=== PATIENT | female | born 1960 | race Caucasian/White ===

== ENCOUNTER 2016-07-26 17:17 | Emergency (ER) | payer OTHER ==
[2016-07-26 17:24] VITALS: TEMP 98.4
[2016-07-26] MEDS ORDERED: NS 250 ML IV ONE (17:27)
[2016-07-26] MEDS ORDERED: ASPIRIN 81 MG CHEWABLE TAB PO ONE (17:27)
--- NOTE | 2016-07-26 17:32 | CPEKG ---
Heart Rate: 77 RR Interval: 779 P-R Interval: 184 QRSD Interval: 84 QT Interval: 388 QTC Interval: 440 P [place]: 33 QRS [place]: 14 T Wave [place]: 32 EKG Severity - NORMAL ECG - EKG Impression: SINUS RHYTHM Electronically Signed By: Alessandro Duffy 26-Jul-2016 21:35:41
[2016-07-26 17:46] LABS: % IMMATURE GRANULYOCYTES 0.4 % (0.0-1.1); ABSOLUTE IMMATURE GRANULOCYTES 0.04 10^3/uL (0.00-0.10); ADD DIFF? NO; ADD MORPH? NO; ADD SCAN? NO; ATYPICAL LYMPHOCYTE FLAG 10 (0-99); FRAGMENT RBC FLAG 0 (0-99); HEMOGLOBIN 12.3 g/dL (12.6-16.3); LEFT SHIFT FLG 0 (0-99); LIPEMIA HEMOLYSIS FLAG 80 (0-99); MEAN CELL HEMOGLOBIN 28.4 pg (27.9-34.1); MEAN CELL HEMOGLOBIN CONCENTR. 31.5 g/dL (32.4-36.7); MEAN CELL VOLUME 90.1 fL (81.5-99.8); MEAN PLATELET VOLUME 9.2 fL (8.7-11.7); PLATELET CLUMPS FLAG 10 (0-99); PLATELET COUNT 400 10^3/uL (150-400); RED BLOOD CELL COUNT 4.33 10^6/uL (4.18-5.33); RED CELL DISTRIBUTION WIDTH 15.8 % (11.5-15.2)
[2016-07-26 17:54] LABS: INR 0.98 (0.83-1.16); PROTIME(PATIENT) 12.9 SEC (12.0-15.0)
[2016-07-26 17:55] LABS: APTT 27.6 SEC (23.0-38.0)
--- NOTE | 2016-07-26 18:00 | EDPHY ---
H & P Time Seen by Provider: 07/26/16 17:27 HPI/ROS: HPI Chest heaviness. Shortness of breath. 56-year-old female by private vehicle. This patient states that she had an upper respiratory infection which she describes as a productive cough onset about 4 weeks ago. She reports that since this time she has felt short of breath. She reports that she was getting better but still felt short of breath. Chief flew from [place] to [place] for her mother's . She reports that her cough was still present but was nonproductive and not as extreme. She reports she was prescribed a Z-Ruddy by her primary care physician on July 09. She took this medication and had no relief. She then presented back to her primary care physician's office at [facility] this evening with complaint of shortness of breath and was sent here for evaluation for possible DVT and PE. ROS: Constitutional: No fever, no chills. No weakness. Eyes: No discharge. No changes in vision. ENT: No sore throat. No nasal congestion or rhinorrhea. Respiratory: As above. Cardiac: As above, no palpitations. Gastrointestinal: No abdominal pain, no vomiting, no diarrhea. Genitourinary: No hematuria. No dysuria or increased frequency with urination. Musculoskeletal: No back pain. No neck pain. No myalgias or arthralgias. Skin: No rashes. Neurological: No headache. No focal weakness or altered sensation. Past medical history: Asthma, fibromyalgia, hypothyroid, history of Graves disease, mitral valve prolapse. Social history: Here by herself. As above. Physical Exam: General Appearance: Alert, no distress. Obese habitus. This patient is responding to questions appropriately and in full sentences. This patient appears well-hydrated and well-nourished. Eyes: Pupils equal and round no pallor or injection. No lid edema, erythema or injection. Respiratory: There are no retractions, lungs are clear to auscultation with good air movement bilaterally. No tachypnea. Cardiovascular: Regular rate and rhythm. No murmur. Gastrointestinal: Abdomen is soft and nontender, no masses, bowel sounds normal. No focal tenderness at McBurney's point. No Whitehead sign. Neurological: Motor sensory function is grossly intact. Cranial nerves are normal. Gait is normal. Skin: Warm and dry, no rashes. Musculoskeletal: Neck is supple and nontender. Extremities are symmetrical. All joints range without pain or impingement. Psychiatric: No agitation. No depression. Database: EKG: EKG time is 5:29 p.m.; EKG shows a narrow complex normal sinus rhythm with a ventricular rate of 77. The TN, QRS, QT intervals are within normal limits. There are no ST-T wave changes indicative of ischemic or injury pattern. No evidence of right heart strain. Interpreted by me. Imaging: Chest x-ray AP per; the cardiac mediastinal silhouette is unremarkable. No evidence of infiltrate or pneumothorax. No acute cardiopulmonary disease process noted. Interpreted by me. Procedures: Emergency department course: IV placed. She was placed on a environmental monitoring technician. EKG performed. She was given 324 mg of chewed aspirin. She was given IV normal saline 250 cc. 6:35 p.m., patient re-evaluated. She is resting comfortably at this time. She denies any chest pain or discomfort. Results of her diagnostic tests were discussed. Her workup has been reassuring. I discussed admission with her for observation and cardiology consultation. She does not want to be admitted at this time. She is a single mother with children at home. She tells me that she has been under a lot of stress with her mother done recently. She states that she feels comfortable going home but is asking for something to help her sleep. I discussed follow-up with [facility] for provocative testing on Friday. She is in agreement with this plan. She states also that she can easily return to the emergency department if she develops chest pain or worsening shortness of breath. She understands for follow-up. Return to emergency department precautions were thoroughly reviewed with her. All of her questions were answered. She was discharged in good condition. Differential Diagnosis: The differential diagnosis on this patient includes but is not limited to reactive airway disease, pulmonary embolism, acute coronary syndrome. This represents a partial list of diagnoses considered. These considerations are based on history, physical exam, past history, reassessment and diagnostic testing. Smoking Status: Never smoked Constitutional: Initial Vital Signs Temperature (C) 36.9 C 07/26/16 17:21 Heart Rate 77 07/26/16 17:21 Respiratory Rate 14 07/26/16 17:21 Blood Pressure 184/103 H 07/26/16 17:21 O2 Sat (%) 94 07/26/16 17:21 O2 Delivery Mode Room Air Allergies/Adverse Reactions: bacitracin [From Triple Antibiotic] Allergy (Verified 07/26/16 17:21) bacitracin zinc [From Triple Antibiotic] Allergy (Verified 07/26/16 17:21) gold Au 198 Allergy (Verified 07/26/16 17:21) methimazole [From Tapazole] Allergy (Verified 07/26/16 17:21) neomycin sulfate [From Triple Antibiotic] Allergy (Verified 07/26/16 17:21) polymyxin B [From Triple Antibiotic] Allergy (Verified 07/26/16 17:21) polymyxin B sulfate [From Triple Antibiotic] Allergy (Verified 07/26/16 17:21) Medical Decision Making - Data Points Laboratory Results: Laboratory Results 07/26/16 17:34 07/26/16 07/26/16 07/26/16 17:34 17:34 17:34 WBC 9.59 10^3/uL H 10^3/uL (3.80-9.50) RBC 4.33 10^6/uL 10^6/uL (4.18-5.33) Hgb 12.3 g/dL L g/dL (12.6-16.3) Hct 39.0 % % (38.0-47.0) MCV 90.1 fL fL (81.5-99.8) MCH 28.4 pg pg (27.9-34.1) MCHC 31.5 g/dL L g/dL (32.4-36.7) RDW 15.8 % H % (11.5-15.2) Plt Count 400 10^3/uL 10^3/uL (150-400) MPV 9.2 fL fL (8.7-11.7) Neut % (Auto) 59.5 % % (39.3-74.2) Lymph % (Auto) 30.8 % % (15.0-45.0) [place] % (Auto) 6.2 % % (4.5-13.0) Eos % (Auto) 2.4 % % (0.6-7.6) Baso % (Auto) 0.7 % % (0.3-1.7) Nucleat RBC Rel Count 0.0 % % (0.0-0.2) Absolute Neuts (auto) 5.71 10^3/uL 10^3/uL (1.70-6.50) Absolute Lymphs (auto) 2.95 10^3/uL 10^3/uL (1.00-3.00) Absolute Monos (auto) 0.59 10^3/uL 10^3/uL (0.30-0.80) Absolute Eos (auto) 0.23 10^3/uL 10^3/uL (0.03-0.40) Absolute Basos (auto) 0.07 10^3/uL 10^3/uL (0.02-0.10) Absolute Nucleated RBC 0.00 10^3/uL 10^3/uL (0-0.01) Immature Gran % 0.4 % % (0.0-1.1) Immature Gran # 0.04 10^3/uL 10^3/uL (0.00-0.10) PT 12.9 SEC SEC (12.0-15.0) INR 0.98 (0.83-1.16) APTT 27.6 SEC SEC (23.0-38.0) D-Dimer 0.47 ug/mLFEU ug/mLFEU (0.00-0.50) Troponin I < 0.012 ng/mL ng/mL (0-0.034) NT-Pro-B Natriuret Pep 112 pg/mL pg/mL (0-125) Medications Given: Discontinued Medications Aspirin (Aspirin) 324 mg PO EDNOW ONE Stop: 07/26/16 17:28 Last Admin: 07/26/16 17:45 Dose: 324 mg Sodium Chloride (Ns) 250 mls @ 0 mls/hr IV ONCE ONE PRN Reason: Wide Open Stop: 07/26/16 17:28 Last Admin: 07/26/16 17:45 Dose: 250 mls Departure - Departure Disposition: Home, Routine, Self-Care Clinical Impression: Dyspnea, Chest discomfort Condition: Good Instructions: Dyspnea (ED) Additional Instructions: Read and follow provided instructions. Follow-up with Dr. Capo Oh or 1 of his colleagues at [facility] on Friday as discussed for stress test. Take medication as prescribed. Ativan 1 mg tablets for anxiety, 1 mg every 6-8 hours as needed for anxiety and to help you sleep. Do not drive on this medication. Return to the emergency department immediately for worsening shortness of breath , any chest pain or other serious concerns. Referrals: Capo Oh MD [Medical Doctor] - As per Instructions
[2016-07-26 18:13] LABS: TROPONIN I < 0.012 ng/mL (0-0.034)
[2016-07-26 18:35] VITALS: BP 175/91; PULSE 69; RESP 16; O2SAT 97
[2016-07-26] MEDS ORDERED: LORAZEPAM 1 MG PREPACK#4 BTL TAKEHOME ONE (18:43)
== END 2016-07-26 18:58 | disposition home or self-care (01) ==
DX: R06.00 Dyspnea, unspecified (principal); R07.89 Other chest pain; J45.909 Unspecified asthma, uncomplicated

== ENCOUNTER → 2017-04-09 | Outpatient (CLI) | payer OTHER | LOC: FIMAGING 12:28 | PROVIDERS: ATTEND Obstetrics & Gynecology | DX: Z12.31 Encounter for screening mammogram for malignant neoplasm of breast (principal) | CPT/HCPCS: G0202 ==

== ENCOUNTER → 2017-10-06 | Outpatient (CLI) | payer MEDICAID, OTHER | LOC: BMCIMAGING 10:25 | PROVIDERS: ATTEND Family Medicine | DX: R05 Cough (principal) ==

== ENCOUNTER → 2018-01-16 | Outpatient (CLI) | payer MEDICAID | LOC: FIMAGING 08:58 | PROVIDERS: ATTEND Obstetrics & Gynecology | DX: N64.4 Mastodynia (principal) ==

== ENCOUNTER → 2018-02-11 | Outpatient (CLI) | payer MEDICAID | LOC: FIMAGING 12:45 | PROVIDERS: ATTEND Obstetrics & Gynecology | DX: R10.2 Pelvic and perineal pain (principal); D25.9 Leiomyoma of uterus, unspecified ==

== ENCOUNTER 2018-02-12 16:16 | Emergency (ER) | payer MEDICAID ==
--- NOTE | 2018-02-12 17:22 | EDPHY ---
H & P Stated Complaint: R SIDED ABD PAIN Time Seen by Provider: 02/12/18 16:58 HPI/ROS: HPI: This is a 57-year-old female who presents with Chief Complaint: Right lower quadrant pain Location: Right lower quadrant Quality: Pain Duration: 3 days Signs and Symptoms: no fever, no nausea, no vomiting, no hematemesis, no blood in stool, no abdominal bloating, no diarrhea, no back pain, no urinary symptoms , no vaginal bleeding/discharge, no indigestion, no chest pain, no shortness of breath Timing: Acute the, worsening Severity09/09 Context: Patient has a history of cholecystectomy and presents with 3 day history of right lower quadrant pain that has slowly worsened over the last several days. She reports that if she stands up the pain intensifies. She still eating and drinking without any difficulty. She denies nausea, vomiting, fever, diarrhea, urinary symptoms, blood in stool, vaginal bleeding. Patient reports that her PCP ordered a pelvic ultrasound yesterday that showed fibroids but no ovarian torsion or large ovarian cyst. After further questioning patient reports that she did move a large heavy couch on Friday. Last meal was around 1:00 p.m. Modifying Factors: None Comment: ROS: A comprehensive 10 system review of systems is otherwise negative aside from elements mentioned in the history of present illness. MEDICAL/SURGICAL/SOCIAL HISTORY: Medical history: Generally healthy. Does not take any regular medications. Surgical history: Denies Social history: Family history noncontributory. CONSTITUTIONAL: Morbidly obese middle-aged white female, nontoxic in appearance , awake and alert, no obvious distress HEENT: Atraumatic and normocephalic, PERRL, EOMI. Nares patent; no rhinorrhea; no nasal mucosal edema. Tympanic membranes clear. Oropharynx clear, no exudate and moist pink mucosa. Airway patent. No lymphadenopathy. No meningismus. Cardiovascular: Normal S1/S2, regular rate, regular rhythm, without murmur rub or gallop. PULMONARY/CHEST: Symmetrical and nontender. Clear to auscultation bilaterally. Good air movement. No accessory muscle usage. ABDOMEN: Soft, nondistended, obesely round, the mild tenderness in the right lower quadrant to deep palpation,, no rebound, no guarding, no peritoneal signs , no masses or organomegaly. No CVAT. Negative Rovsing sign. Negative obturator sign. Negative psoas sign. EXTREMITIES: 2/2 pulses, strength 5/5, no deformities, no clubbing, no cyanosis or edema. NEUROLOGICAL: no focal neuro deficits. GCS 15. SKIN: Warm and dry, no erythema. no rash. Good capillary refill. Source: Patient Exam Limitations: No limitations - Personal History Current Tetanus Diphtheria and Acellular Pertussis (TDAP): Yes - Medical/Surgical History Hx Asthma: No Hx Chronic Respiratory Disease: No Hx Diabetes: No Hx Cardiac Disease: No Hx Renal Disease: No Hx Cirrhosis: No Hx Alcoholism: No Hx HIV/AIDS: No Hx Splenectomy or Spleen Trauma: No Other PMH: ASTHMA, FIBROMYALGIA, CELIAC, GRAVES DISEASE, MITRAL VALVE PROLAPSE CHOLY - Social History Smoking Status: Never smoked Constitutional: Initial Vital Signs Temperature (C) 37 C 02/12/18 16:26 Heart Rate 65 02/12/18 16:26 Respiratory Rate 18 02/12/18 16:26 Blood Pressure 162/101 H 02/12/18 16:26 O2 Sat (%) 97 02/12/18 16:26 O2 Delivery Mode Room Air Allergies/Adverse Reactions: bacitracin [From Triple Antibiotic] Allergy (Verified 02/12/18 16:24) bacitracin zinc [From Triple Antibiotic] Allergy (Verified 02/12/18 16:24) gold Au 198 Allergy (Verified 02/12/18 16:24) methimazole [From Tapazole] Allergy (Verified 02/12/18 16:24) neomycin sulfate [From Triple Antibiotic] Allergy (Verified 02/12/18 16:24) polymyxin B [From Triple Antibiotic] Allergy (Verified 02/12/18 16:24) polymyxin B sulfate [From Triple Antibiotic] Allergy (Verified 02/12/18 16:24) Home Medications: Medication Instructions Recorded Amlodipine Besylate 02/12/18 Hydroxychloroquine Sulfate 02/12/18 Irbesartan 02/12/18 Prozac 20 MG (*) 02/12/18 Synthroid 100 mcg (*) 02/12/18 Vit D3-Vit K/[place]/Hops 02/12/18 Medical Decision Making - Diagnostics Imaging Results: Imaging Impressions Abdomen CT 02/12/18 17:22 Impression: 1. No evidence of acute abdominopelvic inflammatory mass or ascites. 2. 2.6 cm left adrenal nodule may represent adrenal adenoma, however this is incompletely characterized without three-phase CT. Dr. Polanco was notified of these findings by telephone at 6:53 PM on 02/12/2018 ED Course/Re-evaluation: Vital signs reviewed and show mild elevated blood pressure upon arrival. No systemic signs. Urinalysis, labs, CT abdomen and pelvis scan ordered Patient politely declined any pain medications or antiemetics upon arrival. 1800: Labs reviewed. No signs of leukocytosis/anemia/platelet dysfunction/SAMMIE/ elevated LFTs/electrolyte imbalance/pancreatitis. 1855: Called by radiologist who advised that CT abdomen and pelvis scan shows no signs of appendicitis, kidney stone, ureteral stone, diverticulitis, obstruction, colitis. 2.6 cm left adrenal nodule may represent adrenal adenoma, however this is incompletely characterized without three-phase CT. 1900: Urine shows no signs of infection, no blood. Reassessed patient who reports pain is still mild in nature. She now believes that this is related to moving 3 heavy couch is on Friday. I offered her Flexeril and she politely declined and wishes to only use ibuprofen. This patient was seen under the supervision of my secondary supervising physician. I evaluated care for this patient independently. Discussed this patient with Dr. Rick. Differential Diagnosis: Abdominal pain including but not limited to appendicitis, cholecystitis, gastritis and urinary tract infection. - Data Points Laboratory Results: Laboratory Results 02/12/18 17:20 02/12/18 17:20 02/12/18 02/12/18 02/12/18 17:20 17:20 17:20 WBC 8.66 10^3/uL 10^3/uL (3.80-9.50) RBC 4.31 10^6/uL 10^6/uL (4.18-5.33) Hgb 12.8 g/dL g/dL (12.6-16.3) Hct 40.2 % % (38.0-47.0) MCV 93.3 fL fL (81.5-99.8) MCH 29.7 pg pg (27.9-34.1) MCHC 31.8 g/dL L g/dL (32.4-36.7) RDW 14.2 % % (11.5-15.2) Plt Count 331 10^3/uL 10^3/uL (150-400) MPV 9.5 fL fL (8.7-11.7) Neut % (Auto) 68.2 % % (39.3-74.2) Lymph % (Auto) 23.9 % % (15.0-45.0) [place] % (Auto) 5.8 % % (4.5-13.0) Eos % (Auto) 1.3 % % (0.6-7.6) Baso % (Auto) 0.6 % % (0.3-1.7) Nucleat RBC Rel Count 0.0 % % (0.0-0.2) Absolute Neuts (auto) 5.91 10^3/uL 10^3/uL (1.70-6.50) Absolute Lymphs (auto) 2.07 10^3/uL 10^3/uL (1.00-3.00) Absolute Monos (auto) 0.50 10^3/uL 10^3/uL (0.30-0.80) Absolute Eos (auto) 0.11 10^3/uL 10^3/uL (0.03-0.40) Absolute Basos (auto) 0.05 10^3/uL 10^3/uL (0.02-0.10) Absolute Nucleated RBC 0.00 10^3/uL 10^3/uL (0-0.01) Immature Gran % 0.2 % % (0.0-1.1) Immature Gran # 0.02 10^3/uL 10^3/uL (0.00-0.10) Sodium 139 mEq/L mEq/L (135-145) Potassium 4.4 mEq/L mEq/L (3.3-5.0) Chloride 103 mEq/L mEq/L (97-110) Carbon Dioxide 27 mEq/l mEq/l (22-31) Anion Gap 9 mEq/L mEq/L (8-16) BUN 13 mg/dL mg/dL (7-23) Creatinine 0.7 mg/dL mg/dL (0.6-1.0) Estimated GFR > 60 Glucose 97 mg/dL mg/dL (70-100) Calcium 9.4 mg/dL mg/dL (8.5-10.4) Total Bilirubin 0.4 mg/dL mg/dL (0.1-1.4) Conjugated Bilirubin 0.1 mg/dL mg/dL (0.0-0.5) Unconjugated Bilirubin 0.3 mg/dL mg/dL (0.0-1.1) AST 20 IU/L IU/L (14-46) ALT 34 IU/L IU/L (9-52) Alkaline Phosphatase 125 IU/L IU/L (38-126) Total Protein 7.3 g/dL g/dL (6.3-8.2) Albumin 4.0 g/dL g/dL (3.5-5.0) Lipase 84 IU/L IU/L (23-300) Beta HCG, Qual NEGATIVE Urine Color Urine Appearance Urine pH Ur Specific [place] Urine Protein Urine Ketones Urine Blood Urine Nitrate Urine Bilirubin Urine Urobilinogen Ur Leukocyte Esterase Urine Glucose 02/12/18 16:55 WBC RBC Hgb Hct MCV MCH MCHC RDW Plt Count MPV Neut % (Auto) Lymph % (Auto) [place] % (Auto) Eos % (Auto) Baso % (Auto) Nucleat RBC Rel Count Absolute Neuts (auto) Absolute Lymphs (auto) Absolute Monos (auto) Absolute Eos (auto) Absolute Basos (auto) Absolute Nucleated RBC Immature Gran % Immature Gran # Sodium Potassium Chloride Carbon Dioxide Anion Gap BUN Creatinine Estimated GFR Glucose Calcium Total Bilirubin Conjugated Bilirubin Unconjugated Bilirubin AST ALT Alkaline Phosphatase Total Protein Albumin Lipase Beta HCG, Qual Urine Color LT. YELLOW Urine Appearance CLEAR Urine pH 6.5 (5.0-7.5) Ur Specific [place] <= 1.005 (1.002-1.030) Urine Protein NEGATIVE (NEGATIVE) Urine Ketones NEGATIVE (NEGATIVE) Urine Blood NEGATIVE (NEGATIVE) Urine Nitrate NEGATIVE (NEGATIVE) Urine Bilirubin NEGATIVE (NEGATIVE) Urine Urobilinogen 0.2 EU EU (0.2-1.0) Ur Leukocyte Esterase NEGATIVE (NEGATIVE) Urine Glucose NEGATIVE (NEGATIVE) Medications Given: Discontinued Medications Ondansetron HCl (Zofran) 4 mg IVP EDNOW ONE Stop: 02/12/18 18:41 Last Admin: 02/12/18 18:30 Dose: 4 mg Departure - Departure Disposition: Home, Routine, Self-Care Clinical Impression: Muscular abdominal pain in right lower quadrant, Adrenal nodule Condition: Good Instructions: Musculoskeletal Pain (ED) Additional Instructions: TAKE TYLENOL 650 MG EVERY 4 HOURS AND/OR IBUPROFEN 600 MG EVERY 8 HOURS WITH FOOD NEEDED FOR PAIN. PERFORM GENTLE STRETCHING EXERCISES. CT scan today showed an incidental 2.6 cm left adrenal nodule that may represent adrenal adenoma, however this is incompletely characterized without three-phase CT. Recommend follow up with primary care provider. Return to the ER immediately if you experience new or worsening pain, discoloration, numbness, tingling, or any other symptoms that concern you. Referrals: ROSE ANDREWS [Other] - As per Instructions
[2018-02-12 17:40] LABS: PLATELET COUNT 331 10^3/uL (150-400)
[2018-02-12] MEDS ORDERED: IOPAMIDOL (ISOVUE-300) 100 ML BTL ONE (17:56)
[2018-02-12] MEDS ORDERED: ONDANSETRON 4 MG/2 ML VIAL ONE (18:17)
[2018-02-12] MEDS ORDERED: ONDANSETRON 4 MG/2 ML VIAL IVP ONE (18:40)
[2018-02-12 18:54] VITALS: BP 155/89
== END 2018-02-12 19:29 | disposition home or self-care (01) ==
DX: R10.31 Right lower quadrant pain (principal); D44.12 Neoplasm of uncertain behavior of left adrenal gland; E66.01 Morbid (severe) obesity due to excess calories
CPT/HCPCS: 96374; J2405; Q9967

== ENCOUNTER → 2018-03-23 | Outpatient (CLI) | payer MEDICAID, OTHER ==
[~2018-03-23] MED LIST: IOPAMIDOL (ISOVUE-300) 100 ML BTL ONE; IOPAMIDOL (ISOVUE-300) 150 ML BTL ONE
== END ==
LOC: FIMAGING 16:37
PROVIDERS: ATTEND Internal Medicine
DX: R93.5 Abnormal findings on diagnostic imaging of other abdominal regions, including retroperitoneum (principal); R19.09 Other intra-abdominal and pelvic swelling, mass and lump
CPT/HCPCS: Q9967

== ENCOUNTER 2018-07-03 10:53 | Emergency (ER) | payer MEDICAID ==
--- NOTE | 2018-07-03 11:15 | EDPHY ---
H & P Stated Complaint: Pain L calf x1wk, prone to clots, denies recent stasis. Time Seen by Provider: 07/03/18 11:01 HPI/ROS: CHIEF COMPLAINT: Left calf pain HISTORY OF PRESENT ILLNESS: 58-year-old female complaining 1 week of left popliteal fossa pain, cramping. Patient has a history of prothrombin gene mutation which was diagnosed after 2 spontaneous abortions however the patient has had no history of PE or DVT. Atraumatic. No history of mobilization. No distal discoloration or weakness or loss of sensation. No recent surgery. No hemoptysis. No chest pain. No dyspnea. REVIEW OF SYSTEMS: 10 systems reviewed and negative with the exception of the elements mentioned in the history of present illness PAST MEDICAL & SURGICAL HISTORY: Prothrombin mutation diagnosed after to spontaneous abortions. No history DVT or PE. SOCIAL HISTORY: Nonsmoker PHYSICAL EXAM (Prior to examination, patient consented to physical exam, hands were washed and my usual and customary physical exam procedures followed) 1) GENERAL: Well-developed, well-nourished, alert and oriented. Appears to be in no acute distress. 2) HEAD: Normocephalic, atraumatic 3) HEENT: Pupils equal, round, reactive to light bilaterally. Sclera anicteric. 4) NECK: Full range of motion, no meningeal signs. 5) LUNGS: Clear auscultation bilaterally, no wheezes, no rhonchi, no retractions. 6) HEART: Regular rate and rhythm, no murmur, no heave, no gallop. 7) ABDOMEN: No guarding, no rebound, no focal tenderness, negative McBurney's, negative Whitehead's, negative Rovsing's, negative peritoneal sign, 8) MUSCULOSKELETAL: Left lower extremity: Mild tenderness to palpation left popliteal fossa. Normal coloration temperature. No skin changes. Soft compartments. DP PT pulses present and brisk. Brisk capillary refill. No pain with dorsiflexion or plantar flexion. Full pain-free range of motion of the knee joint. No pain with axial loading of the knee joint. Otherwise, Moving all extremities, no focal areas of tenderness, no obvious trauma. No peripheral edema or discoloration. 9) BACK: No CVA tenderness, no midline vertebral tenderness, no fluctuance, no step-off, no obvious trauma, no visual or palpable abnormality. 10) SKIN: No rash, no petechiae. 11) Psychiatric: Patient is oriented X 3, there is no agitation. DIFFERENTIAL DIAGNOSIS: In no particular order including but not limited to DVT, cellulitis, compartment syndrome, [place] cyst, muscle strain, septic arthritis - Personal History Current Tetanus/Diphtheria Vaccine: Yes - Medical/Surgical History Hx Asthma: No Hx Chronic Respiratory Disease: No Hx Diabetes: No Hx Cardiac Disease: No Hx Renal Disease: No Hx Cirrhosis: No Hx Alcoholism: No Hx HIV/AIDS: No Hx Splenectomy or Spleen Trauma: No Other PMH: ASTHMA, FIBROMYALGIA, CELIAC, GRAVES DISEASE, MITRAL VALVE PROLAPSE CHOLY - Social History Smoking Status: Never smoked Constitutional: Initial Vital Signs Temperature (C) 36.6 C 07/03/18 10:57 Heart Rate 64 07/03/18 10:57 Respiratory Rate 16 07/03/18 10:57 Blood Pressure 150/101 H 07/03/18 10:57 O2 Sat (%) 97 07/03/18 10:57 O2 Delivery Mode Room Air Allergies/Adverse Reactions: bacitracin [From Triple Antibiotic] Allergy (Verified 07/03/18 10:56) bacitracin zinc [From Triple Antibiotic] Allergy (Verified 07/03/18 10:56) gold Au 198 Allergy (Verified 07/03/18 10:56) methimazole [From Tapazole] Allergy (Verified 07/03/18 10:56) neomycin sulfate [From Triple Antibiotic] Allergy (Verified 07/03/18 10:56) polymyxin B [From Triple Antibiotic] Allergy (Verified 07/03/18 10:56) polymyxin B sulfate [From Triple Antibiotic] Allergy (Verified 07/03/18 10:56) Home Medications: Medication Instructions Recorded Amlodipine Besylate 02/12/18 Hydroxychloroquine Sulfate 02/12/18 Irbesartan 02/12/18 Prozac 20 MG (*) 02/12/18 Synthroid 100 mcg (*) 02/12/18 Vit D3-Vit K/Berberine/Hops 02/12/18 Medical Decision Making - Diagnostics Imaging Results: Imaging Impressions Extremity Venous Study 07/03/18 11:04 Impression: 1. No deep venous thrombosis left leg. 2. 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 Findings and recommendations discussed with Emergency Department physician, Yamileth Ledesma at 1200 hour, 07/03/2018. Final report concurs with initial preliminary interpretation. Images reviewed myself ED Course/Re-evaluation: 12:26 p.m.: Reviewed the imaging results with the patient showing no acute DVT. She is noted to have a calcified thrombus in the lesser saphenous vein. She remains neurovascular intact no evidence of ischemia. Plan will be discharge. Given my usual customary return precautions instructions. Care of patient under supervision of secondary supervising physician Dr Chirinos with whom I discussed case. Departure - Departure Disposition: Home, Routine, Self-Care Clinical Impression: Pain of left calf Condition: Good Instructions: Leg Pain (ED) Additional Instructions: Return to the ER if you develop leg discoloration worsening pain or any other symptoms that concern you. Referrals: Louise Her MD [Primary Care Provider] - 2-3 days, call for appt.
[2018-07-03 12:33] VITALS: BP 145/91
== END 2018-07-03 12:33 | disposition home or self-care (01) ==
DX: I80.02 Phlebitis and thrombophlebitis of superficial vessels of left lower extremity (principal); D68.52 Prothrombin gene mutation; M79.7 Fibromyalgia

== ENCOUNTER → 2018-11-07 | Outpatient (CLI) | payer MEDICAID | LOC: FCPNEURO 21:00 ==